=== PATIENT | female | born 1965 | race Caucasian/White ===

== ENCOUNTER 2024-05-21 00:16 | Emergency (ER) | payer BC ==
[2024-05-21] MEDS ORDERED: Ondansetron PF 4 MG/2 ML Vial ONE (01:02)
[2024-05-21 01:49] LABS: #Basophils 0.06 10x3/uL (0.0-0.2); #Eosinophils 0.31 10x3/uL (0.0-0.5); #Monocytes 0.67 10x3/uL (0.0-1.1); #Neutrophils 6.35 10x3/uL (1.5-8.4); %Basophils 0.7 % (0.0-2.0); %Eosinophils 3.7 % (0.0-6.0); %Lymphocytes 12.2 % (18.0-47.0); %Monocytes 7.9 % (0.0-10.0); %Neutrophils 75.1 % (40.0-75.0); Hematocrit 40.1 % (34.9-44.5); Hemoglobin 13.6 g/dL (12.0-15.5); Mean Corpuscular HGB CONC 33.9 g/dL (32.0-36.0); Mean Corpuscular Hemoglobin 30.3 pg (27.0-33.0); Mean Corpuscular Volume 89.3 fL (81.6-98.3); Mean Platelet Volume 12.7 fL (7.4-10.4); Platelet Count 38 10x3/uL (150-450); RBC Distribution Width 13.2 % (11.5-14.5); Red Blood Cell (RBC) Count 4.49 10x6/uL (3.90-5.03); White Blood Cell (WBC) Count 8.4 10x3/uL (3.5-10.5)
[2024-05-21 01:57] LABS: PTT 26.1 sec (22.0-33.0); Prothrombin Time 10.8 sec (9.5-12.1)
[2024-05-21 02:06] LABS: ALT (SGPT) 27 U/L (8-55); AST (SGOT) 14 U/L (5-34); Albumin 3.2 g/dL (3.5-5.0); Alkaline Phosphatase 104 U/L (40-110); Anion Gap 11 mmol/L (10-20); BUN (Urea Nitrogen) 10 mg/dL (9.8-20.1); Bilirubin, Total 0.9 mg/dL (0.2-1.2); Calc. Creatinine Clearance 0 mL/min (70-130); Calcium 9.1 mg/dL (7.8-10.44); Carbon Dioxide 21 mmol/L (22-29); Chloride 110 mmol/L (98-107); Estimated GFR 101; Glucose 153 mg/dL (70-105); Potassium 4.1 mmol/L (3.5-5.1); Protein, Total 6.2 g/dL (6.0-8.3); Sodium 138 mmol/L (136-145)
[2024-05-21 02:27] LABS: Bilirubin Neg (Negative); Blood, Urine 10 (Negative); Clarity Clear (Clear); Glucose, Urine (Dipstick) Normal (Negative); Ketone, Urine Negative (Negative); Leukocyte Negative (Negative); Nitrite Negative (Negative); Protein, Urine (Dipstick) Negative (Neg-Trace); Urobilinogen Normal mg/dL (Less than 2)
[2024-05-21 03:07] LABS: Bacteria/HPF 1+ HPF (None Seen); CAUTI Indications for Culture Acute Hematuria; RBC/HPF 0-3 HPF (0-3); WBC/HPF 0-3 HPF (0-3); Yeast-Budding 1+ HPF (None Seen)
[2024-05-21 03:08] LABS: Urine Culture Reflex No No
== END 2024-05-21 03:00 | disposition home or self-care (01) ==
LOC: CSHERS 00:16
DX: D69.3 Immune thrombocytopenic purpura (principal); I10 Essential (primary) hypertension
CPT/HCPCS: 80053; 81001; 85025; 85610; 85730; 96374; J2405

== ENCOUNTER 2025-03-03 18:26 | Emergency (ER) | payer BC ==
[2025-03-03] MEDS ORDERED: Acetaminophen 500 MG TAB ONE (18:42)
[2025-03-03 19:49] LABS: Glucose, Urine (Dipstick) Normal (Negative); Leukocyte 100 (Negative); Protein, Urine (Dipstick) 30 mg/dl (Neg-Trace); Specific Gravity, Urine 1.010 (1.005-1.030)
[2025-03-03 19:55] LABS: RBC/HPF 0-3 HPF (0-3)
[2025-03-03 19:56] LABS: CAUTI Indications for Culture Pelvic or flank pain; WBC/HPF Greater Than 50 HPF (0-3)
[2025-03-03 19:57] LABS: Bacteria/HPF 2+ HPF (None Seen); Mucous/LPF Rare LPF (<2+)
[2025-03-03 19:58] LABS: Urine Culture Reflex Yes Yes
== END 2025-03-03 20:10 | disposition home or self-care (01) ==
LOC: CSHERS 18:26
DX: U07.1 COVID-19 (principal); N39.0 Urinary tract infection, site not specified; I10 Essential (primary) hypertension
CPT/HCPCS: 71045; 81001; 87077; 87081; 87086; 87428; 87430; Q0162